=== PATIENT | male | born 1980 | race Caucasian/White ===

== ENCOUNTER 2017-09-18 05:35 | Emergency (ER) | payer MEDICAID ==
[~2017-09-18] VITALS: Ht 175.3 cm; Wt 73.0 kg
[~2017-09-18 05:35] MED LIST: ERYT400T4 PO; TYLE3 PO; Z.0.NO CURRENT MEDS
[2017-09-18 05:41] VITALS: BP 175/101; PULSE 106; RESP 18; TEMP 98.9; O2SAT 100
[2017-09-18] MEDS ORDERED: SODIUM CHLOR 0.9% 1000 ML INJ 1,000 ML IV ONE (05:44)
[2017-09-18] MEDS ORDERED: SODIUM CHLORIDE 0.9% FLUSH 10 ML FLUSH IVF PRN (05:45)
[2017-09-18] MEDS ORDERED: ONDANSETRON HCL 4 MG/2 ML VIAL IV PUSH ONE (05:45)
[2017-09-18 05:46] VITALS: O2SAT 100
[2017-09-18 06:13] LABS: AUTOMATED NEUTROPHIL # 3.6 TH/MM3 (1.8-7.7); BASOPHIL % 0.5 % (0.0-2.0); EOSINOPHIL # 0.2 TH/MM3 (0-0.4); EOSINOPHIL % 2.5 % (0.0-4.0); HEMATOCRIT 36.2 % (39.0-51.0); HEMO FLAGS DIFF FINAL; LYMPH % 31.8 % (9.0-44.0); MEAN CELL VOLUME 87.7 FL (80.0-100.0); MEAN CORPUSCULAR HEMOGLOBIN 31.2 PG (27.0-34.0); MEAN CORPUSCULAR HGB CONC 35.5 % (32.0-36.0); MONO % 7.8 % (0.0-8.0); NEUT % 57.4 % (16.0-70.0); PLATELET COUNT 155 TH/MM3 (150-450); RED BLOOD COUNT 4.13 MIL/MM3 (4.50-5.90); RED CELL DISTRIBUTION WIDTH 14.4 % (11.6-17.2); WHITE BLOOD COUNT 6.3 TH/MM3 (4.0-11.0)
--- NOTE | 2017-09-18 06:17 | PD ---
HPI Chief Complaint: OD/ Ingestion Time Seen by Provider: 05:44 Travel History International Travel<30 days: No Contact w/Intl Traveler<30days: No Traveled to known affect area: No History of Present Illness HPI The patient is a 37 year old male who presents to the [facility] emergency department with a history of accidentally overdosing on heroin at 4:30 AM today. The patient reports that he has a history of IV drug use. He reports that he was trying to get high. He reports that he does have a history of using methamphetamine, heroin, and marijuana. He denies any suicidal ideations. The patient was found with a GCS of 3 with agonal respiratory effort. The patient was given nasal Narcan by first responders. The patient became awake and alert. The patient arrives with a GCS of 15. The patient reports having some nausea. The patient also reports feeling extremely cold. He has not had any vomiting. Otherwise on review of systems, the patient denies having any recent fevers, cough, congestion, neck pain, chest pain, shortness of breath, abdominal pain, vomiting, diarrhea, urinary symptoms, or other neurologic symptoms. [facility] Past Medical History Narrative Medical The patient's past medical history is significant for HIV, hepatitis C, IV drug use. The patient has not been on his retroviral medications for the last 6 months. Autoimmune Disease: Yes (PT IS HIV POSITIVE) Blood Disorders: No Cancer: No Cardiovascular Problems: No Chemotherapy: No Diminished Hearing: No Endocrine: No Gastrointestinal Disorders: Yes GERD: No Genitourinary: No Hepatitis: Yes (HEPITIS C AND B POSITIVE) Hiatal Hernia: No Immune Disorder: Yes (HIV POSITIVE) Musculoskeletal: No Neurologic: No Psychiatric: No Respiratory: No Radiation Therapy: No Ulcer: No Past Surgical History Surgical History: No Previous Surgery AICD: No Appendectomy: No Cholecystectomy: No Joint Replacement: No Pacemaker: No Other Surgery: No Social History Alcohol Use: No (QUIT DRINKING 2005) Tobacco Use: Yes ( 1 PPD ) Substance Use: Yes (CRACK COCAINE, COCAINE, HEROIN, METH, AND MARIJIIANA) Allergies-Medications (Allergen,Severity, Reaction): Coded Allergies: penicillin G (Unverified Allergy, Mild, 06/05/17) No Known Allergies (Verified , 04/03/06) Reported Meds & Prescriptions Reported Meds & Active Scripts Active Tylenol #3 (Acetaminophen/Codeine Phosphate) 300 Mg/30 Mg Tab 1 Tab PO Q6HPRN FOR PAIN Ees 400 (Erythromycin Ethylsuccinate) 400 Mg Tab 400 Mg PO Q6 Reported No Current Meds (Miscellaneous Medication) [facility] Review of Systems Except as stated in HPI: all other systems reviewed are Neg General / Constitutional: No: Fever Eyes: No: Visual changes HENT: Positive: Dental Difficulties (dental pain), No: Headaches Cardiovascular: No: Chest Pain or Discomfort Respiratory: No: Shortness of Breath Gastrointestinal: Positive: Nausea, No: Abdominal Pain Genitourinary: No: Dysuria Musculoskeletal: No: Pain Skin: No Rash Neurologic: No: Weakness Psychiatric: Positive: Substance Abuse, No: Depression, Suicidal Ideations, Mood Disorder, Homicidal Ideation Endocrine: No: Polydipsia Hematologic/Lymphatic: No: Easy Bruising Physical Exam Narrative General: The patient is a well-developed well-nourished male in no acute distress. Head and Neck exam: Head is normocephalic atraumatic. Eyes: EOMI, pupils are equal round and reactive to light. Nose: Midline septum with pink mucous membranes Mouth: Dentition is remarkable for dental decay, no abscess formation. The patient has gingival erythema, inflammation without any focal abscess. Moist mucus membranes. Posterior oropharynx is not erythematous. No tonsillar hypertrophy. Uvula midline. Airway patent. Neck: No palpable lymphadenopathy. No nuchal rigidity. No thyromegaly. Cardiovascular: Sinus tachycardia in the 1 teens without murmurs, gallops, or rubs. No pulse deficit to the extremities on simultaneous auscultation and palpation of his radial artery. Lungs: Clear to auscultation bilaterally. No wheezes, rhonchi, or rales. Abdomen: Soft, without tenderness to palpation in all 4 quadrants of the abdomen. No guarding, rebound, or rigidity. Normal bowel sounds are audible. No tenderness on palpation of McBurney's point. Extremities: No clubbing, cyanosis, or edema. 2+ pulses in all 4 extremities. Back: No spinous process tenderness to palpation. No costovertebral angle tenderness to palpation. Neurologic Exam: Grossly nonfocal. Skin Exam: No rash noted. Intact skin that is warm and dry. Data Data Last Documented VS Vital Signs Date Time Temp Pulse Resp B/P (MAP) Pulse Ox O2 Delivery O2 Flow Rate FiO2 09/18/17 05:46 100 Room Air 09/18/17 05:41 98.9 106 18 175/101 (125) Orders Orders Basic Metabolic Panel (Bmp) (09/18/17 05:44) Complete Blood Count With Diff (09/18/17 05:44) Urinalysis - C+S If Indicated (09/18/17 05:44) Chest, Single Ap (09/18/17 05:44) Iv Access Insert/Monitor (09/18/17 05:44) Ecg Monitoring (09/18/17 05:44) Oximetry (09/18/17 05:44) Sodium Chloride 0.9% Flush (Ns Flush) (09/18/17 05:45) Sodium Chlor 0.9% 1000 Ml Inj (Ns 1000 M (09/18/17 05:44) Drug Screen, Random Urine (09/18/17 05:44) Alcohol (Ethanol) (09/18/17 05:44) Salicylates (Aspirin) (09/18/17 05:44) Tylenol (Acetaminophen) (09/18/17 05:44) Ondansetron Inj (Zofran Inj) (09/18/17 05:45) Ibuprofen (Motrin) (09/18/17 07:00) Labs Laboratory Tests Test 09/18/17 06:00 White Blood Count 6.3 TH/MM3 Red Blood Count 4.13 MIL/MM3 Hemoglobin 12.9 GM/DL Hematocrit 36.2 % Mean Corpuscular Volume 87.7 FL Mean Corpuscular Hemoglobin 31.2 PG Mean Corpuscular Hemoglobin Concent 35.5 % Red Cell Distribution Width 14.4 % Platelet Count 155 TH/MM3 Mean Platelet Volume 8.1 FL Neutrophils (%) (Auto) 57.4 % Lymphocytes (%) (Auto) 31.8 % Monocytes (%) (Auto) 7.8 % Eosinophils (%) (Auto) 2.5 % Basophils (%) (Auto) 0.5 % Neutrophils # (Auto) 3.6 TH/MM3 Lymphocytes # (Auto) 2.0 TH/MM3 Monocytes # (Auto) 0.5 TH/MM3 Eosinophils # (Auto) 0.2 TH/MM3 Basophils # (Auto) 0.0 TH/MM3 CBC Comment DIFF FINAL Differential Comment Blood Urea Nitrogen 17 MG/DL Creatinine 1.14 MG/DL Random Glucose 126 MG/DL Calcium Level 8.9 MG/DL Sodium Level 137 MEQ/L Potassium Level 3.5 MEQ/L Chloride Level 102 MEQ/L Carbon Dioxide Level 26.9 MEQ/L Anion Gap 8 MEQ/L Estimat Glomerular Filtration Rate 72 ML/MIN Salicylates Level LESS THAN 1.7 MG/DL Acetaminophen Level LESS THAN 2.0 MCG/ML Ethyl Alcohol Level LESS THAN 3 MG/DL MDM Medical Decision Making Medical Screen Exam Complete: Yes Emergency Medical Condition: Yes Medical Record Reviewed: Yes Differential Diagnosis Accidental versus intentional heroin overdose Narrative Course During the course of the patients emergency department visit, the patients history, examination, and differential diagnosis were reviewed with the patient. The patient was placed on a cardiac exercise specialist with oximetry and frequent blood pressure monitoring. The patient had IV access obtained and blood work sent for analysis. An ECG was done on arrival. The patient's ECG reveals a sinus tachycardia rate of 109, no acute ST segment elevation or depression. QRS duration is 105 ms, QTc is 411 ms. The patient was initially provided normal saline 1 L IV fluid bolus, Zofran 4 mg IV. The patient was given Motrin 400 mg by mouth 1 for dental pain. The patients laboratory studies were reviewed and remarkable for white count 6.3 , hemoglobin 12.9, platelets 155 with a normal differential, basic metabolic profile is remarkable for glucose of 126, acetaminophen less than 2, salicylate less than 1.7, alcohol less than 3. Radiology studies were reviewed and remarkable for a chest x-ray that shows no acute cardiopulmonary disease. The patient will be observed in the emergency department for any decreased level of consciousness or decreased respiratory rate/decreased oxygenation while on telemetry as the patient's Narcan wears off. If the patient continues to be awake and alert. The patient will be able to be discharged home after 3 hours of observation. The patient's case will be checked out to the oncoming emergency physician to reevaluate and disposition the patient at the conclusion of my shift. Diagnosis Primary Impression: Accidental heroin overdose Qualified Codes: T40.1X1A - Poisoning by heroin, accidental (unintentional), initial encounter Torrie Esteban MD Sep 18, 2017 06:17
--- NOTE | 2017-09-18 06:21 | RADRPT ---
EXAM DATE/TIME: 09/18/2017 06:01 [facility] COMPARISON: No previous studies available for comparison. INDICATIONS : Short of breath, cough, possible OD. MEDICAL HISTORY : None. SURGICAL HISTORY : None. ENCOUNTER: Initial ACUITY: 1 day PAIN SCORE: 0/10 LOCATION: Bilateral chest FINDINGS: A single view of the chest demonstrates the lungs to be symmetrically aerated without evidence of mas s, infiltrate or effusion. The cardiomediastinal contours are unremarkable. Osseous structures are intact. CONCLUSION: No acute disease. Silverio Gastelum MD on September 18, 2017 at 6:20 Board Certified Radiologist. This report was verified electronically.
[2017-09-18 06:22] LABS: ANION GAP 8 MEQ/L (5-15)
[2017-09-18 06:25] LABS: ACETAMINOPHEN LESS THAN 2.0 MCG/ML (10.0-30.0); ALCOHOL LESS THAN 3 MG/DL (0-5); BICARBONATE 26.9 MEQ/L (21.0-32.0); BLOOD UREA NITROGEN 17 MG/DL (7-18); CHLORIDE 102 MEQ/L (98-107); GLOMERULAR FILTRATION RATE 72 ML/MIN (>89); POTASSIUM 3.5 MEQ/L (3.5-5.1); SODIUM (NA) 137 MEQ/L (136-145)
[2017-09-18] MEDS ORDERED: IBUPROFEN 400 MG TAB PO ONE (07:00)
[2017-09-18 08:18] VITALS: BP 129/75; PULSE 102; RESP 22; TEMP 98.8; O2SAT 94
[2017-09-18 09:39] VITALS: RESP 18
--- NOTE | 2017-09-18 15:22 | EKG ---
Date Performed: 09/18/2017 Time Performed: 05:43:11 PTAGE: 37 years EKG: SINUS TACHYCARDIA ABNORMAL RHYTHM ECG NO PREVIOUS TRACING DOCTOR: Vannesa Garcia Interpretating Date/Time 09/18/2017 15:20:45
--- NOTE | 2017-09-18 15:23 | EKG ---
Date Performed: 09/18/2017 Time Performed: 08:34:35 PTAGE: 37 years EKG: Sinus rhythm WITH MARKED SINUS ARRHYTHMIA When compared to previous tracing, the patient is no longer Tachycardic . BORDERLINE ECG PREVIOUS TRACING : 09/18/2017 05.43.11 DOCTOR: Vannesa Garcia Interpretating Date/Time 09/18/2017 15:22:26
== END 2017-09-18 10:49 | disposition home or self-care (01) ==
LOC: NEPE 05:35
DX: T40.1X1A Poisoning by heroin, accidental (unintentional), initial encounter (principal); R00.0 Tachycardia, unspecified; B19.10 Unspecified viral hepatitis B without hepatic coma; B19.20 Unspecified viral hepatitis C without hepatic coma; F17.210 Nicotine dependence, cigarettes, uncomplicated; Z21 Asymptomatic human immunodeficiency virus [HIV] infection status
CPT/HCPCS: 71010; 80048; 80307; 85025; 93005; 96361; 96374; 99285; J2405; J7030